=== PATIENT | female | born 1990 | race Two or more races ===

== ENCOUNTER 2020-01-04 18:17 | Emergency (ER) | payer SELFPAY ==
[~2020-01-04] VITALS: Ht 152.4 cm; Wt 47.6 kg
[2020-01-04 18:54] VITALS: BP 170/95
== END 2020-01-04 22:30 | disposition left against medical advice (07) ==
LOC: ER 18:17
DX: I10 Essential (primary) hypertension (principal); R07.89 Other chest pain; Z53.21 Procedure and treatment not carried out due to patient leaving prior to being seen by health care provider